=== PATIENT | male | born 1945 | race Caucasian/White ===

== ENCOUNTER 2017-06-09 09:04 | Day surgery (SDC) | payer BC, OTHER ==
[2017-06-09] VITALS (9 sets, daily range): BP systolic 86–116; BP diastolic 50–77; PULSE 60–84; TEMP 36.5–37; O2SAT 95–98; Ht 177.8 cm; Wt 129.3 kg
[~2017-06-09] VITALS: Ht 177.8 cm; Wt 129.3 kg
[~2017-06-09 09:04] MED LIST: CEFAZOLIN 1000MG IV PUSH 7.5 ML IV SCH; D5W AND 1/4NSS 1000 ML IV SCH; HYDC25 PO; METO50TA16 PO; SIMV40TA2 PO
[2017-06-09] MEDS ORDERED: CARV12.52 PO (09:50)
[2017-06-09] MEDS ORDERED: AMIO200T4 PO (09:50)
[2017-06-09] MEDS ORDERED: APIX1TAB3 PO (09:50)
[2017-06-09] MEDS ORDERED: FERR1TAB13 PO (09:50)
[2017-06-09] MEDS ORDERED: B-COTAB83 PO (09:50)
[2017-06-09] MEDS ORDERED: LINA1TAB PO (09:50)
[2017-06-09] MEDS ORDERED: VANC5CAP PO (09:50)
[2017-06-09] MEDS ORDERED: TAMS0.4C38 PO (09:50)
--- NOTE | 2017-06-09 10:36 | Pre Sedation Assessment ---
Pre Sedation Assessment General Date of Sedation: Jun 09, 2017. Vital Signs Past 12 Hours Date Time Temp Pulse Resp B/P (MAP) Pulse Ox O2 Delivery O2 Flow Rate FiO2 06/09/17 09:49 37 78 20 89/69 (76) 95 Room Air Review Cardiovascular: regular rate, rhythm, no edema, no gallop, no JVD, no murmur, normal peripheral pulses Lungs: lungs clear Pre-Sedation Airway Assessment Smoking Status: Never Smoker Hx of Sleep Apnea: Yes Short Thick Neck: No Thyro-mental Distance: < or =3 Finger Breadths Oral Cavity: Dentures Mallampati Classification: Class I ASA Classification: Class III NPO Status Date of Last Intake of Fluids: Jun 08, 2017 Time of Last Intake of Fluids: 2200 Date of Last Intake of Solids: Jun 08, 2017 Time of Last Intake of Solids: 1800 Procedure Planning Contraindications for Sedation: None Current Medications Reviewed: Yes Notes The planned sedation has been discussed with the patient. Informed Consent was obtained. I have identified the patient, determined the appropriateness of sedation and have assessed the patient immediately prior to the procedure. All medicine(s) and interventions are by my order.
[2017-06-09] MEDS ORDERED: FENTANYL CITRATE INJ 50 MCG/1 ML 2 ML VIAL ONE ×2 (10:49→11:09)
[2017-06-09] MEDS ORDERED: HEPARIN SOD (PORCINE) 5000 UNIT/ML 1 ML VIAL ONE (10:49)
[2017-06-09] MEDS ORDERED: MIDAZOLAM HCL 1 MG/ML 2ML VIAL ONE ×2 (10:50→11:09)
--- NOTE | 2017-06-09 11:01 | History and Physical ---
History & Physical Date Jun 09, 2017. Chief Complaint Non functioning permcath History of Present Illness The patient is a 71 year old male who had a permcath placed in the past. It worked while he was in the hospital. Wednesday it was not able to be used at dialysis. Here was sent here for an exchange of his catheter. Vitals Vital Signs Past 12 Hours Date Time Temp Pulse Resp B/P (MAP) Pulse Ox O2 Delivery O2 Flow Rate FiO2 06/09/17 09:49 37 78 20 89/69 (76) 95 Room Air Allergies Coded Allergies: No Known Allergies (Verified , 06/09/17) Home Medications Scheduled Amiodarone Hcl (Cordarone), 400 MG PO BID Apixaban (Eliquis), 5 MG PO BID B-Complex W/ C & Folic Acid (Nephro-Heidi Rx), 1 TAB PO DAILY Carvedilol (Coreg), 1 TAB PO BID Ferrous Sulfate (Kp Ferrous Sulfate), 1 TAB PO BID Linagliptin (Tradjenta), 1 TAB PO DAILY Tamsulosin Hcl (Flomax), 1 CAP PO DAILY Vancomycin Hcl (Vancomycin), 1 CAP PO QID Surgical / Medical History Hx Cardiac Surgery: No Hx Abdominal Surgery: Yes (Hernia) Hx Cancer Surgery: No Hx Thoracic Surgery: No Hx Orthopedic: Yes (mandy knees) Hx Urinary Tract Surgery: Yes (LITHOTRIPSY) Past Medical/Surgical History: ASHD, Kidney Disease Social History Smoking Status: Never Smoker Hx Tobacco Use In Past Year?: No Hx Alcohol Use - Type & Amnt: No Hx Substance Use -Type & Amnt: No Review of Systems Constitutional: No chills, No diaphoresis, No fever, No malaise, No weakness, No weight gain, No weight loss, No sweats, No fatigue, No problem reported Respiratory: No cough, No cyanosis, No BURKS, No hemoptysis, No orthopnea, No PND , No short of breath, No sputum production, No stridor, No wheezing, No dyspnea , No problem reported Cardiovascular: No chest pain, No chest tightness, No chest pressure, No palpitations, No syncope, No diaphoresis, No edema, No intermittent claudication , No orthopnea, No cyanosis, No mumur, No lightheadedness, No paroxysmal nocturnal dyspnea, No problem reported Gastrointestinal: No abdominal pain, No constipation, No diarrhea, No nausea, No vomiting, No anorexia, No appetite changes, No belching, No flatulence, No food intolerance, No hematemesis, No hemorrhoids, No hematochezia, No stool changes, No heartburn, No indigestion, No dysphagia, No rectal bleeding, No problem reported Musculoskeletal: No back pain, No gout, No joint pain, No joint swelling, No muscle pain, No muscle stiffness, No muscle weakness, No neck pain, No problem reported Neurologic: No dizziness, No weakness, No headache, No lethargy, No numbness, No paresthesia, No pre-existing deficit, No seizures, No tics, No tingling, No tremors, No vertigo, No memory loss, No LOC, No problem reported Physical Exam Constitutional: General Apperance: heathly-appearing, well-nourished, well-developed Level of Distress: NAD Ambulation: ambulating normally Psychiatric: Mental Status: active & alert, normal mood, normal affect Orientation: oriented except where noted, to time, to place, to person Memory: recent memory normal, remote memory normal Lungs: Auscultation: breath sounds normal Cardiovascular: Heart Auscultation: RRR Peripheral Pulses: Radial Pulse: normal on the left, normal on the right Femoral Pulse: normal on the left, normal on the right Abdomen: Inspection & Palpation: soft, non-distended (s) Musculoskeletal: normal, normal strength (5/5 throughout), normal tone Extremities: Upper Right: no cyanosis, no edema, no varicosities, no palpable cord, no clubbing, no ulcers, no mottling Upper Left: no cyanosis, no edema, no varicosities, no palpable cord, no clubbing, no ulcers, no mottling Lower Right: no cyanosis, no edema, no varicosities, no palpable cord, no clubbing, no ulcers, no mottling Lower Left: no cyanosis, no edema, no varicosities, no palpable cord, no clubbing, no ulcers, no mottling Assessment and Plan Imp: Non functioning permcath Plan: Patient is admitted for an exchange of his permcath. I have discussed the risks options and benefits of the procedure with the patient. The patient understands the risks options and benefits and agrees to the procedure.
[2017-06-09] MEDS ORDERED: ATROPINE SULFATE 0.1 MG/ML 5ML SYR IV PRN ×2 (11:30)
[2017-06-09] MEDS ORDERED: FENTANYL CITRATE INJ 50 MCG/1 ML 2 ML VIAL IV PRN ×2 (11:30)
[2017-06-09] MEDS ORDERED: ONDANSETRON INJ 2 MG/ML 2 ML VIAL IV PRN ×2 (11:30)
[2017-06-09] MEDS ORDERED: LIDOCAINE HCL 1% 20 ML VIAL INJ ONE ×2 (11:56→12:07)
[2017-06-09] MEDS ORDERED: HEPARIN SOD (PORCINE) 5000 UNIT/ML 1 ML VIAL IV ONE (12:09)
--- NOTE | 2017-06-09 12:10 | [facility] Post Operative Brief Note ---
Immediate Operative Summary Operative Date Jun 09, 2017. 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 explanted perm catheter Drains None Anesthesia Type MAC Complication(s) none Disposition Disposition: Recovery Room / PACU
--- NOTE | 2017-06-09 12:13 | Discharge Instructions ---
Discharge Instructions Date of Service Jun 09, 2017. Visit Reason for Visit: Malfunctioning Perm Cath Discharge Discharge Diagnosis / Problem: Non functioning permcath Discharge Goals Goal(s): Therapeutic intervention Activity Recommendations Activity Limitations: resume your previous activity Anesthesia . Post Anesthesia Instructions: If you have had General Anesthesia or IV Sedation: * Do not drive today. * Resume driving when surgeon permits. * Do not make important decisions or sign legal documents today. * Call surgeon for: 1. Temperature elevations greater than 101 degrees F. 2. Uncontrollable pain. 3. Excessive bleeding. 4. Persistent nausea and vomiting. 5. Medication intolerance (nausea, vomiting or rash). * For nausea and vomiting use only clear liquids such as: tea, soda, bouillon until nausea subsides, then gradually increase diet as tolerated. * If you have any concerns or questions, call your surgeon's office. If physician is unavailable and it is an emergency, call 911 or go to the nearest emergency room. . Instructions / Follow-Up Instructions / Follow-Up Call [phone] with any questions or concerns. Bring this with you to dialysis and show it to the nurses: May use permcath for dialysis SPECIAL CARE INSTRUCTIONS: Medications: * Continue to take your medications as directed. If you have been given a prescription for Plavix, please fill it immediately and take as directed. Incision Care: * Your puncture site may have some bruising and minor swelling for about one week. * You will have a small dressing covering your puncture site. You may remove the dressing after 24 hours and shower. You may let the warm soapy water run over it, but be sure to dry the puncture site well and keep it dry. * DO NOT IMMERSE THE INCISION IN A TUB/POOL/etc. UNTIL HEALED. * Puncture sites should be kept covered with a band-aid until it begins to heal. Restrictions: * Depending on whether you leg or arm was punctured to access the arteries, you will be required to lay flat, hold your arm still, or both, for about 4 hours after the procedure to prevent bleeding. * Limit your activity for the first 48 hours. You may walk and go up and down steps. Avoid excessive bending or movement at the puncture site. Possible Complications: * Excessive Swelling - after blood flow is improved you may notice increased swelling in the lower legs. This is a normal response. This usually depends on the amount of blockages in the leg, how long they have been there prior to your procedure and how much blood flow was restored. Elevating your legs will help to improve this. Please notify our office ([phone] ) if the swelling does not go away after lying in bed overnight. * Infection/Drainage/Bleeding - Drainage or bleeding from the puncture site should be minimal. If you have excessive bleeding or drainage, call our office ([phone]) right away. * Pain - You may experience some mild pain or soreness at your puncture site. If your pain does not improve, please contact our office ([phone]). Call your doctor and seek emergent treatment if you develop: * Temperature above 101 degrees * Any fever or chills * Any redness or purulent drainage from the puncture site * Any new dusky/blue colored toes or feet with coolness or sharp or aching pain. SKIN IRRITATION: * You may experience some redness and/or swelling in the area where radiation was administered. If any skin irritation occurs, please contact your family physician. FOLLOW UP VISIT: Keep any scheduled doctor appointments. Diet Recommendations Recommended Home Diet: resume previous diet Procedures Procedures Performed: Exchange Of Perm Catheter, Fluoroscopy For Positioning Pending Studies Studies pending at discharge: no Medical Emergencies . Who to Call and When: Medical Emergencies: If at any time you feel your situation is an emergency, please call 911 immediately. . Non-Emergent Contact Non-Emergency issues call your: Surgeon . . "Provider Documentation" section prepared by Fernando Giraldo. .
--- NOTE | 2017-06-09 13:19 | Anesthesiology Progress Note ---
Anesthesia Post Op Note Date & Time Jun 09, 2017 at 13:18 Vital Signs Pain Intensity: 0 Vital Signs Past 12 Hours Date Time Temp Pulse Resp B/P (MAP) Pulse Ox O2 Delivery O2 Flow Rate FiO2 06/09/17 13:05 78 18 99/72 95 Room Air 06/09/17 12:45 84 18 104/68 95 Room Air 06/09/17 12:26 36.7 82 18 116/77 98 Nasal Cannula 3 06/09/17 09:49 37 78 20 89/69 (76) 95 Room Air Notes Mental Status: alert / awake / arousable, participated in evaluation Pt Amnestic to Procedure: Yes Nausea / Vomiting: adequately controlled Pain: adequately controlled Airway Patency, RR, SpO2: stable & adequate BP & HR: stable & adequate Hydration State: stable & adequate Anesthetic Complications: no major complications apparent
[2017-06-11 11:53] LABS: ISTAT CREATININE 11.5 mg/dl (0.6-1.3); ISTAT IONIZED CALCIUM 1.11 mmol/l (1.12-1.32)
--- NOTE | 2017-07-01 08:45 | DIAGNOSTIC IMAGING REPORT ---
DATE OF PROCEDURE: 06/09/2017 PREOPERATIVE DIAGNOSIS: Kidney failure with dysfunctional PermCath. POSTOPERATIVE DIAGNOSIS: Kidney failure with dysfunctional PermCath. PROCEDURE: PermCath exchange. SURGEON: Dr. Fernando Giraldo. MANAGER TRANSPORTATION PLANNING: Dr. An Alcantar. ANESTHESIA: Monitored anesthesia care plus local. ESTIMATED BLOOD LOSS: 5 mL. COMPLICATIONS: None. INDICATIONS: Mr. Victoriano Kelly is a 71-year-old gentleman with a history of kidney failure, on dialysis through a right IJ PermCath. His PermCath was placed on May 25. He had attempts to use the catheter recently that were unsuccessful as the catheter was malfunctioning. For this reason, he was recommended to undergo PermCath exchange. Risks, benefits and alternatives were discussed with the patient and he consented to the procedure. DESCRIPTION OF PROCEDURE: The patient was taken to the operating room and placed in the supine position. His right neck and chest were prepped and draped in the usual sterile fashion. A safety timeout was performed and the patient, the procedure, and sidedness were correctly identified. An 0.035 angled Glidewire was passed through the existing catheter and ultimately positioned in the IVC. The existing catheter was removed over the wire. Because the existing catheter appeared to be tunneled quite laterally almost into the patient's axilla, a more medial tunnel was created. The dilator was passed from an inferior to superior incision over the right chest, more medial to the existing tunnel. The wire was then placed through the dilator and the dilator removed. The catheter was then placed over the wire into the SVC. The wire was removed. Both ports easily aspirated and flushed. Heparin was instilled into both ports of the catheter. The catheter was sutured to the chest wall with nylon suture. The incision overlying the superior aspect of the tunnel was closed with 3-0 Vicryl in a running fashion. Dermabond skin glue was applied over this incision. Sterile dressing was applied. The patient was transferred to the recovery area in stable condition. He tolerated the procedure well and there were no complications. Dr. Giraldo was present for the entire procedure.
== END 2017-06-09 15:47 | disposition home or self-care (01) ==
LOC: C.ACU 09:04
PROVIDERS: ATTEND Surgery Vascular Surgery
DX: T82.598A Other mechanical complication of other cardiac and vascular devices and implants, initial encounter (principal); Y84.8 Other medical procedures as the cause of abnormal reaction of the patient, or of later complication, without mention of misadventure at the time of the procedure; N18.9 Chronic kidney disease, unspecified; I48.91 Unspecified atrial fibrillation; I12.9 Hypertensive chronic kidney disease with stage 1 through stage 4 chronic kidney disease, or unspecified chronic kidney disease; M19.90 Unspecified osteoarthritis, unspecified site; N40.0 Benign prostatic hyperplasia without lower urinary tract symptoms; Z79.01 Long term (current) use of anticoagulants; Z96.653 Presence of artificial knee joint, bilateral; Z98.890 Other specified postprocedural states; Z79.899 Other long term (current) drug therapy